=== PATIENT | female | born 1980 | race Caucasian/White ===

== ENCOUNTER 2016-08-14 07:40 | Emergency (ER) | payer BC ==
[2016-08-14 08:01] VITALS: RESP 18
--- NOTE | 2016-08-14 08:06 | UCPHY ---
H & P Time Seen by Provider: 08/14/16 07:49 Patient Type: Established HPI/ROS: 36-year-old female presents complaining of severe epigastric pain. She states she has had intermittent issues with it for a long time however it was markedly painful this morning. She states she has scheduled a in appointment with Gastroenterology at the end of the week. She has had some nausea and vomiting however is now tolerating water. She denies diarrhea she denies fevers or chills Review of systems As per HPI General no fever no chills no weakness HEENT no eye pain no eye discharge. No eye redness, no sore throat Respiratory no cough, no shortness of breath Cardiac no chest pain, no peripheral edema GI positive abdominal pain positive nausea positive vomiting no diarrhea no flank pain, no hematuria, no dysuria Musculoskeletal no myalgias, no joint pain Heme no easy bruising, no easy bleeding Endo no polyuria, no polydipsia Skin no rashes, no pruritus Neuro no syncope, no dizziness, no headaches Psych is no suicidal ideation, no homicidal ideation Past Medical/Surgical History: Hypothyroidism Depression/inside a Social History: Denies alcohol or drug use Smoking Status: Never smoked Physical Exam: 36-year-old female alert and oriented no acute distress nontoxic appearance afebrile HEENT atraumatic normocephalic, extraocular muscles intact, anicteric Oropharynx negative for erythema negative exudate, tolerating her own secretions Neck supple no meningismus Lungs clear to auscultation bilaterally Heart regular rate and rhythm without murmur rub or gallop Abdomen nondistended normoactive bowel sounds soft, mild epigastric tenderness, no guarding no rebound Back no CVA tenderness, no step-offs, no spinal tenderness Extremities no cyanosis clubbing or edema Neuro alert and oriented, no focal deficits Constitutional: Initial Vital Signs Heart Rate 69 08/14/16 07:56 Respiratory Rate 18 08/14/16 07:56 Blood Pressure 126/85 H 08/14/16 07:56 O2 Sat (%) 100 08/14/16 07:56 O2 Delivery Mode Room Air Allergies/Adverse Reactions: No Known Allergies Allergy (Verified 04/11/15 11:18) Home Medications: Medication Instructions Recorded Levothyroxine [Synthroid 100 mcg 175 mcg PO DAILY 08/28/12 (*)] Control Pill 04/11/15 Melatonin 08/14/16 Zoloft 50mg (*) 08/14/16 Medical Decision Making - Diagnostics Imaging: Ultrasound negative gallbladder findings, noted incidentally enlarged right kidney CT scan abdomen no evidence of obstructive uropathy however hydro nephrosis and ureter on the right ED Course/Re-evaluation: Patient seen and evaluated for severe epigastric pain. Labs sent CBC, CMP normal Urinalysis within normal limits Ultrasound negative for cholelithiasis or cholecystitis CT scan negative for obstructive uropathy Impression Epigastric pain, gastritis Incidental findings on this visit enlarged right kidney with hydronephrosis and hydroureter however no obstructive uropathy Plan Keep Gastroenterology appointment Arrange to make a primary care appointment Given urology referral for further evaluation of enlarged right kidney - Data Points Laboratory Results: Laboratory Results 08/14/16 08:10 08/14/16 08:10 Medications Given: Discontinued Medications Famotidine (Pepcid) 20 mg IVP EDNOW ONE Stop: 08/14/16 08:29 Last Admin: 08/14/16 08:44 Dose: 20 mg Sodium Chloride (Ns) 1,000 mls @ 0 mls/hr IV ONCE ONE PRN Reason: Wide Open Stop: 08/14/16 08:24 Last Admin: 08/14/16 08:40 Dose: 1,000 mls Departure - Departure Disposition: Home, Routine, Self-Care Clinical Impression: Epigastric abdominal pain, Hydronephrosis determined by ultrasound Condition: Good Instructions: Epigastric Pain (ED) Additional Instructions: Famotidine twice a day as needed Mylanta as needed Referrals: Juanita Lee MD [Primary Care Provider] - As per Instructions Keshawn Fink MD [Medical Doctor] - As per Instructions - PQRS PQRS Measurement: na
[2016-08-14 08:13] LABS: % IMMATURE GRANULYOCYTES 0.4 % (0.0-1.1); ABSOLUTE IMMATURE GRANULOCYTES 0.03 10^3/uL (0.00-0.10); ADD DIFF? NO; ADD MORPH? NO; ADD SCAN? NO; ATYPICAL LYMPHOCYTE FLAG 10 (0-99); FRAGMENT RBC FLAG 0 (0-99); HEMATOCRIT 38.9 % (38.0-47.0); HEMOGLOBIN 14.4 g/dL (12.6-16.3); LEFT SHIFT FLG 0 (0-99); LIPEMIA HEMOLYSIS FLAG 90 (0-99); MEAN CELL HEMOGLOBIN 32.2 pg (27.9-34.1); MEAN PLATELET VOLUME 9.8 fL (8.7-11.7); PLATELET CLUMPS FLAG 0 (0-99); PLATELET COUNT 204 10^3/uL (150-400); RED BLOOD CELL COUNT 4.47 10^6/uL (4.18-5.33); RED CELL DISTRIBUTION WIDTH 10.9 % (11.5-15.2)
[2016-08-14 08:15] LABS: COLOR YELLOW; LEUKOCYTE ESTERASE,URINE NEGATIVE (NEGATIVE); NITRITE,URINE NEGATIVE (NEGATIVE)
[2016-08-14] MEDS ORDERED: NS 1,000 ML IV ONE (08:23)
[2016-08-14 08:26] LABS: BACTERIA TRACE /hpf (NONE SEEN); HYALINE CASTS 25-50 /lpf (0-1); MUCUS 1+ /lpf (NONE-1+)
[2016-08-14] MEDS ORDERED: FAMOTIDINE 20 MG/2 ML SDV IVP ONE (08:28)
[2016-08-14 08:35] LABS: ALANINE AMINOTRANSFERASE 30 IU/L (9-52); ALBUMIN 3.8 g/dL (3.5-5.0); ALKALINE PHOSPHATASE 51 IU/L (38-126); ANION GAP 13 mEq/L (8-16); ASPARTATE AMINOTRANSFERASE 20 IU/L (14-46); BILIRUBIN,TOTAL 0.7 mg/dL (0.1-1.4); CARBON DIOXIDE 24 mEq/l (22-31); CHLORIDE 92 mEq/L (97-110); CREATININE 0.7 mg/dL (0.6-1.0); GLOMERULAR FILTRATION RATE > 60; GLUCOSE 103 mg/dL (70-100); POTASSIUM 3.6 mEq/L (3.5-5.2); SODIUM 129 mEq/L (134-144); TOTAL PROTEIN 6.8 g/dL (6.3-8.2)
[2016-08-14 10:51] VITALS: BP 120/80; PULSE 75; O2SAT 98
== END 2016-08-14 12:36 | disposition home or self-care (01) ==
LOC: CED 07:40
DX: R10.13 Epigastric pain (principal); N13.30 Unspecified hydronephrosis; E03.9 Hypothyroidism, unspecified
CPT/HCPCS: 74176-PO; 76705-PO; 80053-PO; 81003-PO; 81015-PO; 81025-PO; 83690-PO; 85025-PO; 96361-PO; 96374-PO; 99215-PO; G0463-PO

== ENCOUNTER → 2017-07-12 | Outpatient (CLI) | payer BC ==
[~2017-07-12] MED LIST: IOPAMIDOL (ISOVUE 370) 100 ML BTL IV ONE
== END ==
LOC: FIMAGING 12:27
PROVIDERS: ATTEND Obstetrics & Gynecology
DX: R93.8 Abnormal findings on diagnostic imaging of other specified body structures (principal)
CPT/HCPCS: Q9967

== ENCOUNTER → 2017-09-09 | Outpatient (CLI) | payer BC | LOC: FIMAGING 16:06 | PROVIDERS: ATTEND Specialist | DX: Z09 Encounter for follow-up examination after completed treatment for conditions other than malignant neoplasm (principal) ==

== ENCOUNTER → 2017-09-30 | Outpatient (CLI) | payer BC | LOC: FIMAGING 15:06 | PROVIDERS: ATTEND Obstetrics & Gynecology | DX: O99.281 Endocrine, nutritional and metabolic diseases complicating pregnancy, first trimester (principal); O34.219 Maternal care for unspecified type scar from previous cesarean delivery; O09.521 Supervision of elderly multigravida, first trimester; O99.341 Other mental disorders complicating pregnancy, first trimester; E03.9 Hypothyroidism, unspecified; F32.9 Major depressive disorder, single episode, unspecified; Z87.448 Personal history of other diseases of urinary system; Z3A.12 12 weeks gestation of pregnancy ==

== ENCOUNTER → 2017-11-25 | Outpatient (CLI) | payer BC | LOC: FIMAGING 07:35 | PROVIDERS: ATTEND Obstetrics & Gynecology | DX: O09.522 Supervision of elderly multigravida, second trimester (principal); O09.292 Supervision of pregnancy with other poor reproductive or obstetric history, second trimester; Z3A.20 20 weeks gestation of pregnancy ==

== ENCOUNTER → 2018-02-28 | Outpatient (CLI) | payer BC | LOC: CIMAGING 15:03 | PROVIDERS: ATTEND Specialist | DX: N13.30 Unspecified hydronephrosis (principal) | CPT/HCPCS: 76770-PO ==

== ENCOUNTER 2018-03-24 07:04 | Inpatient (IN) | payer BC ==
--- NOTE | 2018-03-20 13:22 | GHP ---
DATE OF ADMISSION: 04/03/2018 Date of operation is scheduled for 04/03/2018. PREOPERATIVE DIAGNOSIS: Intrauterine at 39 weeks gestation with a history of primary low transverse section secondary to breech, desires repeat. HISTORY OF PRESENT ILLNESS: Coral is a 38-year-old, 2, para 1-0-0-1, with a last menstrual period of 07/04/2017, and an EDC of 04/10/2018, confirmed by a first trimester ultrasound. She has had good care at [facility] since registration at 7 weeks gestation. Her risk factors include advanced maternal age. She has had a level 2 ultrasound that was normal and a normal NIPT screening. Hypothyroidism. She has been well controlled on levothyroxine, and her TSHs have been checked every trimester. She is on 150 mcg daily. History of depression and anxiety. She was started on Zoloft and has been well controlled throughout the on 50 mg a day. We have had long discussions about increasing her dose to 75 mg daily. She had a history of a LEEP. She has had normal cervical lengths in this . History of secondary to breech. Desires repeat. She herself was found to have an enlarged right kidney prior to that has been followed up with Urology and is normal now. She has a family history of cardiac defect, and this baby had a normal echo. PAST OBSTETRICAL HISTORY: In June 2014, she had a viable female, 6 pounds 11 ounces, by secondary to breech. She declined an external cephalic version and did well except for anxiety and depression. GYNECOLOGICAL HISTORY: She had normal menarche at age 16. She has cycles every 26-32 days and was 4-5 days. She had a history of an abnormal Pap and a LEEP in 2004. She has had normal Paps since. She also had an infertility evaluation and was found to have a blocked left fallopian tube, but this was a spontaneous . PAST MEDICAL HISTORY: She has mild asthma, rarely uses an inhaler. The hypothyroidism was diagnosed at age 26. She is well controlled on levothyroxine and depression and anxiety, is on Zoloft. 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 [place] teeth extraction in high school, ACL x2, and she had to have a patch on her tympanic membrane on her left ear as a child. ALLERGIES: She has no known drug allergies. MEDICATIONS: Include vitamins, DHA and fish oil, levothyroxine, and magnesium supplementation. SOCIAL HISTORY: She is . She lives with her , Twan, and her daughter. She works as a director at [employer]. She denies tobacco, alcohol, and drug use. FAMILY HISTORY: Maternal grandmother has diabetes. Her sister had lymphoma and a maternal aunt with breast cancer. Maternal grandfather lung cancer. Paternal grandfather with prostate cancer. Paternal grandmother with Alzheimer disease. REVIEW OF SYSTEMS: Negative except for pertinent positives as above in HPI and normal symptoms, ready for a . OBJECTIVE: VITAL SIGNS: Today, blood pressure is 98/56. Weight is 176 pounds , which is a 40-pound weight gain this . GENERAL: She is a well- developed, well-nourished gravid white female in no acute distress. LUNGS: Clear to auscultation bilaterally. HEART: Regular rate and rhythm. No murmur. Fundal height is 37. heart tones are 155. Cervical exam is closed and long. Baby is cephalic. ASSESSMENT AND PLAN: A 38-year-old 2, para 1-0-0-1, who will be 39 weeks gestation on the , scheduled for primary low transverse section. The patient was consented for the procedure today. She understood the risks and benefits. The risks including bleeding, infection, damage to internal organs, uterus, tubes, ovaries, bowel, bladder, nerves, blood vessels, ureters, risk of injury, risk of bleeding requiring blood transfusion, hysterectomy, or . She understood these risks and benefits and agreed to proceed. /[id number]/MODL MTDD
[2018-03-24] MEDS ORDERED: LR 1,000 ML IV SCH (07:19)
[2018-03-24] MEDS ORDERED: CITRIC ACID/SODIUM CITRATE 30 ML UDCUP PO ONE (07:19)
[2018-03-24] MEDS ORDERED: ceFAZolin 2 GM/DEXTROSE 100 ML IV ONE (07:19)
[2018-03-24] MEDS ORDERED: LR 500 ML IV ONE (07:19)
--- NOTE | 2018-03-24 07:22 | PDHPUP ---
History & Physical Update H&P update statement: This history and physical update is based on an assessment of the patient which was completed after admission or registration (within 24 hours), but prior to the surgery/procedure. H&P update: H&P reviewed & patient examined H&P changes: Coral presented this AM at 37w4d by ALAN of 04/10/18, called with SROM early this AM and now having regular painful ctx's. H/o primary section for breech, desires repeat. Aware of option of and no interest in that. Will proceed to OR this AM, routine orders.
[2018-03-24 07:32] LABS: PLATELET COUNT 155 10^3/uL (150-400)
[2018-03-24] MEDS ORDERED: OXYTOCIN/RINGERS LACTATE 20 UNIT/1,000 ML BAG IV ONE (07:43)
[2018-03-24] MEDS ORDERED: PHENYLEPHRINE HCL 100 MCG/ML SYR ONE (07:51)
[2018-03-24] MEDS ORDERED: ePHEDrine SULFATE 25 MG/5 ML SYR ONE (07:52)
--- NOTE | 2018-03-24 08:01 | PREANESOB ---
Obstetric Pre-Anesthesia Info - General Info NPO Start Time: 08:00 (sip of water at 6am, last solid 03/23 20:00) : 2 Para: 1 ALAN: 04/10/18 Gestational Age: 37 week(s) and 4 day(s) - Info Status: Premature, [place]rellana - Labor Status Rupture of Membranes Date: 03/24/18 Rupture of Membranes Time: 05:30 Amniotic Fluid Color: Clear PIH: No Magnesium Sulfate in Use: No Section History: Repeat Indications for Current Section: Elective/Repeat Labor Epidural: No Anesthesia Allergies/Adverse Reactions: Allergy/AdvReac Type Severity Reaction Status Date / Time No Known Allergies Allergy Verified 04/11/15 11:18 Home Medications: Medication Instructions Recorded Levothyroxine [Synthroid 100 mcg 175 mcg PO DAILY 08/28/12 (*)] Zoloft 50mg (*) 1 tab PO DAILY 08/14/16 1 tab PO DAILY 03/24/18 Visit Medications: Generic Name Dose Route Start Last Admin Trade Name Freq PRN Reason Stop Dose Admin Lactated Ringer's 1,000 mls @ 125 mls/hr 03/24/18 07:19 Lr IV 03/25/18 07:18 CONT JASVIR Discontinued Medications Generic Name Dose Route Start Last Admin Trade Name Freq PRN Reason Stop Dose Admin Citric Acid/Sodium Citrate 30 ml 03/24/18 07:19 03/24/18 07:29 Bicitra PO 03/24/18 07:20 30 ml ONCALL ONE Administration Ephedrine Sulfate Confirm 03/24/18 07:52 Ephedrine Sulfate Administered 03/24/18 07:53 Dose 25 mg .ROUTE .STK-MED ONE Cefazolin Sodium/Dextrose 100 mls @ 200 mls/hr 03/24/18 07:19 03/24/18 07:30 Ancef IV 03/24/18 07:48 100 mls ONCALL ONE Administration Protocol Lactated Ringer's 500 mls @ 0 mls/hr 03/24/18 07:19 03/24/18 07:29 Lr IV 03/24/18 07:20 500 mls ONCE ONE Administration As Directed Oxytocin/Lactated Ringer's Confirm 03/24/18 07:43 Pitocin 20 Units/Lr (Premix) Administered 03/24/18 07:44 Dose 20 unit IV .STK-MED ONE Phenylephrine HCl Confirm 03/24/18 07:51 Neosynephrine Administered 03/24/18 07:52 Dose 1,000 mcg .ROUTE .STK-MED ONE - Vital Signs Height/Weight (Nursing): Height 165.1 cm Weight 79.379 kg - Focused Exam Neck exam: FROM Mallampati Score: Class 2 Mouth exam: normal dental/mouth exam Pulmonary: no respiratory distress Cardiovascular: regular rate and rhythym Labs: 03/24/18 07:20 - Plan Anesthetic Plan: Plan for spinal and TAP block Consent Signed and on Chart: Yes Patient/Guardian Understands and Agrees to Plan: Yes
[2018-03-24] MEDS ORDERED: ROPIVACAINE HCL 150 MG/30 ML INJ ONE (08:56)
[2018-03-24] MEDS ORDERED: BUPIVACAINE/DEXTROSE 7.5MG/ML 2 ML SPINAL AMP SP ONE (08:57)
[2018-03-24] MEDS ORDERED: HYDROmorphONE/DILAUDID 1 MG/ML INJ IVP PRN ×2 (08:59→14:04)
[2018-03-24] MEDS ORDERED: PHENYLEPHRINE HCL 100 MCG/ML SYR IVP PRN ×2 (08:59→11:18)
[2018-03-24] MEDS ORDERED: NALOXONE HCL 0.4 MG/ML INJ IVP PRN ×2 (08:59→11:18)
[2018-03-24] MEDS ORDERED: METOCLOPRAMIDE 10 MG/2 ML VIAL IVP PRN ×2 (08:59→11:18)
[2018-03-24] MEDS ORDERED: ONDANSETRON 4 MG/2 ML VIAL IVP PRN ×2 (08:59→11:18)
[2018-03-24] MEDS ORDERED: HYDROCODONE/APAP 5/325 TAB PO PRN ×2 (08:59→11:18)
[2018-03-24] MEDS ORDERED: fentaNYL 100 MCG/2 ML INJ IVP PRN ×2 (08:59→11:18)
[2018-03-24] MEDS ORDERED: MEPERIDINE 25 MG/0.5 ML AMP IVP PRN ×2 (08:59→11:18)
[2018-03-24] MEDS ORDERED: PROMETHAZINE HCL 25 MG/ML INJ IVP PRN (09:16)
[2018-03-24] MEDS ORDERED: oxyCODONE IR 5 MG TAB PO PRN (09:16)
[2018-03-24] MEDS ORDERED: SIMETHICONE 80 MG TAB CHEW PO PRN (09:16)
--- NOTE | 2018-03-24 09:24 | SUROPNOTE ---
[facility] Operative Report - Surgery Date of Operation: 03/24/18 Surgeon: Yovany Gill Melter Operator: Raissa Jackson RN Anesthesia: Spinal (W bilat TAP blocks) Pre-op Diagnosis: SROM, early labor, h/o repeat Post-op Diagnosis: Same Procedure: RLTCS Findings: Minimal scar tissue, normal uterus, bilat tubes and ovaries Inf/Abcess present in the surg proc area at time of surgery?: No EBL: 700cc Total fluids administered: 1500cc Complications: None Specimen(s): Placenta not sent, cord blood gasses not sent.
--- NOTE | 2018-03-24 09:25 | OBDEL ---
Info Type: Repeat Presentation at Delivery: Vertex L&D Analgesia/Anesthesia Type: None (w bilat tap blocks), Spinal GBS+: No Intrapartum Medications: Discontinued Medications Generic Name Dose Route Start Last Admin Trade Name Sander PRN Reason Stop Dose Admin Citric Acid/Sodium Citrate 30 ml 03/24/18 07:19 03/24/18 07:29 Bicitra PO 03/24/18 07:20 30 ml ONCALL ONE Administration Cefazolin Sodium/Dextrose 100 mls @ 200 mls/hr 03/24/18 07:19 03/24/18 07:30 Ancef IV 03/24/18 07:48 100 mls ONCALL ONE Administration Protocol Lactated Ringer's 500 mls @ 0 mls/hr 03/24/18 07:19 03/24/18 07:29 Lr IV 03/24/18 07:20 500 mls ONCE ONE Administration As Directed Indications for Delivery: Spontaneous Labor, SROM Vaginal Delivery - Labor and Delivery Onset of Contractions Date: 03/24/18 Onset of Contractions Time: 06:00 Rupture of Membranes Date: 03/24/18 Rupture of Membranes Time: 05:30 Amniotic Fluid Color: Clear Operative Report - Delivery Pre-op Diagnoses: H/o PLTCS, desires repeat, SROM, early labor Post-op Diagnoses: Same History of Prior Section: Yes Number of Prior Sections: 1 Nulliparous Prior to Delivery: No Indications for Prior Section: Breech Indications for Current Section: Elective/Repeat Procedure: Unscheduled (37 wks PROM) Surgeon: Yovany Gill Framing Manager: Raissa Jackson Complications: None Findings: Minimal scar tissue, normal uterus, normal tubes and ovaries EBL: 700 [place] Data ALAN: 04/10/18 Gestational Age: 37 week(s) and 4 day(s) Orellana Delivery Date: 03/24/18 Delivery Time: 08:33 Sex of Infant: Female [place] Weight (gm): 3160 g Score (1 Min): 8 Score (5 Min): 8 ICD10 Worksheet Patient Problems: Problems Problem Status Onset Rupture, membranes, premature Acute Breech delivery Acute delivery delivered Acute - ICD10 Problem Qualifiers (1) Rupture, membranes, premature
[2018-03-24] MEDS: KETOROLAC 30 MG/1 ML SDV IVP SCH ×3 (10:02→22:06)
--- NOTE | 2018-03-24 10:03 | POSTANESTH ---
Post Anesthetic Evaluation Cardiovascular Status: Normal, Stable Respiratory Status: Normal, Stable Level of Consciousness/Mental Status: Can Participate in Eval Pain Control: Adequate, Prn Tx Ordered Nausea/Vomiting Control: Adequate, Prn Tx Ordered Complications Possibly Related to Anesthesia: None Noted
[2018-03-24] MEDS: IBUPROFEN 600 MG TAB PO SCH ×3 (10:04→23:30)
[2018-03-24] MEDS: ACETAMINOPHEN 325 MG TAB PO SCH ×3 (10:04→21:28)
[2018-03-24 10:41] LABS: PLATELET COUNT 148 10^3/uL (150-400)
[2018-03-24] MEDS: HYDROmorphONE/DILAUDID 1 MG/ML INJ IVP PRN ×3 (11:31→12:23)
[2018-03-24] MEDS: traMADol 50 MG TAB PO PRN ×2 (17:54→23:57)
[2018-03-24] MEDS: DOCUSATE SODIUM 100 MG CAP PO PRN (21:28)
[2018-03-24] MEDS: SERTRALINE HCL 50 MG TAB PO SCH (21:29)
[2018-03-25] MEDS: ACETAMINOPHEN 325 MG TAB PO SCH ×4 (03:44→23:00)
[2018-03-25] MEDS: KETOROLAC 30 MG/1 ML SDV IVP SCH (03:45)
[2018-03-25] MEDS: IBUPROFEN 600 MG TAB PO SCH ×4 (05:43→23:00)
[2018-03-25] MEDS: traMADol 50 MG TAB PO PRN ×3 (06:07→12:09)
[2018-03-25] MEDS: DOCUSATE SODIUM 100 MG CAP PO PRN ×2 (08:01→20:27)
[2018-03-25] MEDS ORDERED: LIDOCAINE 1% 300 MG/30 ML SDV ONE (09:47)
--- NOTE | 2018-03-25 11:10 | OBPP ---
Progress Note Assessment/Plan: Assessment: 38 POD#1 s/p R-C/S at 37w4d after SROM. Post op course complicated this morning by wound hematoma. Plan: wound opened and hematoma evacuated and packed with wet to dry saline Kerlex dressing. Will need to do this twice daily. No indication for abx. Will need to get home health involved to assist with bid dressing changes. Claire Dhillon MD, FACOG [facility] 03/25/18 10:53 Subjective/ Course: Doing well, ambulating, . Pain well controlled. Ulysses reg diet, no N/V. Had a couple gushes of blood this morning with moving around, thought was vaginal bleeding, but actually coming from left side of incision. 03/25/18 11:10 Objective: 03/25/18 03:55 03/24/18 10:27 Patient ABO/Rh B POSITIVE 03/24/18 07:20 Uric Acid 3.9 mg/dL (2.5-6.8) 03/24/18 10:27 Total Bilirubin 0.4 mg/dL (0.1-1.4) 03/24/18 10:27 Conjugated Bilirubin 0.1 mg/dL (0.0-0.5) 03/24/18 10:27 Unconjugated Bilirubin 0.3 mg/dL (0.0-1.1) 03/24/18 10:27 AST 25 IU/L (14-46) 03/24/18 10:27 ALT 21 IU/L (9-52) 03/24/18 10:27 Lactate Dehydrogenase 659 IU/L (313-618) H 03/24/18 10:27 Temp Pulse Resp BP Pulse Ox 36.6 C 67 16 113/78 96 03/25/18 03:58 03/25/18 03:58 03/25/18 03:58 03/25/18 03:58 03/25/18 03:58 Intake and Output 03/24/18 03/25/18 03/25/18 17:59 05:59 17:59 Intake Total 2850 1250 500 Output Total 2050 3100 450 Balance 800 -1850 50 Weight 79.379 kg Intake: Oral (ml) 1400 1250 500 IV Intake (ml) 1200 IV Infused (ml) 250 Lr 1,000 ml @ 125 mls/hr 250 IV CONT JASVIR Rx#: [id number] Output: Urine (ml) 1350 3100 450 Catheter 1350 3100 450 Estimated Blood Loss (ml) 700 Other: Intake Quantity Yes Sufficient Output Comment Catheter kothari catheter Per TANIA Hensley, had 1400ml urine out in about 3 hours this morning when she took out the Kothari catheter. Gen - pleasant, NAD abd - soft, fundus firm at u-3, diastasis noted above umbilicus, Inc - left side open 2cm and oozing blood actively. Entire incision has an underlying what appears to be a hematoma 15cm x 5cm. ext - trace edema, no calf tenderness Consulted with wound care nurse, who evaluated pt too and agreed that hematoma evacuation and wet to dry bid dressing changes is the best plan. Verbal consent obtained. Pt given IV dilaudid. Entire incision and surrounding skin prepped with betadine x 3. Sterile technique used. 10 ml of 1% lidocaine infiltrated over the length of the incision. Remainder of entire incision opened - suture removed. Fascia intact. Vast majority of SubQ was filled with clot which was evacuated. Moist gauze was used to clean and remove all clot. Silver nitrate sticks used to obtain hemostasis of active bleeder on left side of incision and some oozing throughout the incision. Wound was then packed with saline moistened Kerlix gauze, with care taken to fill the space deep on the left side of the incision - approximately 8cm caudal beneath the incision. ABD pad and Medipore tape to cover entire wound. Pt tolerated procedure well. Uterine Position/Fundal Height: Umbilicus -2 Uterine Tone: Firm
[2018-03-25] MEDS: LEVOTHYROXINE 175 MCG TAB PO SCH (11:18)
[2018-03-25] MEDS: SERTRALINE HCL 50 MG TAB PO SCH (12:09)
--- NOTE | 2018-03-25 13:51 | ASMTCMCOM ---
CM Note CM Note Notes: Request from nursing that Dr. Dhillon wants [facility] services for patient's wound care. Patient is s/p with hematoma and evacuation of hematoma. Per Dr. Dhillon wound care consulted and recommendation is for BID wet to dry dressing changes. Contacted [facility] as patient [place] which can be challenging to acquire [facility] for. I will call [facility] back regarding the possibility of doing BID while teaching patient or other provider to assist with one of the daily dressing changes. CM to follow. Plan: Likely to dc home with [facility]. Date Signed: 03/25/2018 01:50 PM Electronically Signed By:Anita Carreon RN
--- NOTE | 2018-03-25 14:44 | PDPAINCON ---
Pain Management Consultation - Subjective Pain is: under control Side effects include: No drowsy, No itchiness, No nausea Activity: able to ambulate - Objective Technique: single shot nerve block (Spinal/TAPs) Catheter site: clean, dry, intact, no erythema/edema/exudate Sensory and motor exam: block has resolved, no apparent ill effects Vital signs: stable - Assessment/Plan Assessment/Plan: pain well-controlled, continue current mgmt
--- NOTE | 2018-03-25 16:22 | ASMTCMCOM ---
CM Note CM Note Notes: Spoke with [facility] regarding patient needs for BID dressing changes and they are willing to provide this for interim, Patient reports her is unable to participate in wound care and she has no other support system available to learn how to perform dressings. CM to follow for needs. Plan: Home with [facility] Date Signed: 03/25/2018 04:22 PM Electronically Signed By:Anita Carreon RN
[2018-03-25] MEDS: HYDROmorphONE/DILAUDID 2 MG TAB PO PRN (20:27)
[2018-03-26] MEDS: HYDROmorphONE/DILAUDID 2 MG TAB PO PRN ×5 (00:27→19:56)
[2018-03-26] MEDS: ACETAMINOPHEN 325 MG TAB PO SCH ×3 (05:23→19:55)
[2018-03-26] MEDS: IBUPROFEN 600 MG TAB PO SCH ×3 (05:24→19:56)
[2018-03-26] MEDS: SERTRALINE HCL 50 MG TAB PO SCH (06:25)
[2018-03-26] MEDS: LEVOTHYROXINE 175 MCG TAB PO SCH (06:25)
--- NOTE | 2018-03-26 08:48 | OBPP ---
Progress Note Assessment/Plan: Assessment: 1) s/p RCS POD # 2 - pt is stable 2) Post-op wound hematoma with evacuation 3) Anemia - pt is asymptomatic Plan: Continue routine post-op care Dr. Shellie Escobar to come see pt for wound care this am Will start iron BID Cont bowel protocol Pt may take her own magnesium support prn 03/26/18 09:29 Subjective/ Course: Doing well, ambulating, . Pain well controlled. Shannan reg diet, no N/V. Had a couple gushes of blood this morning with moving around, thought was vaginal bleeding, but actually coming from left side of incision. 03/25/18 11:10 03/26/18 08:48 Pt seen and examined. She is up ambulating to get water this am. Pain is better controlled with oral Dilaudid, but notes may be constipating. Pt would like to take her own magnesium to help with BM. Mild lochia. Pt is shannan regular diet, voiding without difficulty and passed flatus yesterday. BF is going well. Pt also notes lower ext edema and muscle cramps in LLE-which is not new for her. 03/26/18 09:29 Objective: 03/25/18 03:55 03/24/18 10:27 Patient ABO/Rh B POSITIVE 03/24/18 07:20 Uric Acid 3.9 mg/dL (2.5-6.8) 03/24/18 10:27 Total Bilirubin 0.4 mg/dL (0.1-1.4) 03/24/18 10:27 Conjugated Bilirubin 0.1 mg/dL (0.0-0.5) 03/24/18 10:27 Unconjugated Bilirubin 0.3 mg/dL (0.0-1.1) 03/24/18 10:27 AST 25 IU/L (14-46) 03/24/18 10:27 ALT 21 IU/L (9-52) 03/24/18 10:27 Lactate Dehydrogenase 659 IU/L (313-618) H 03/24/18 10:27 Temp Pulse Resp BP Pulse Ox 36.6 C 82 16 130/71 H 94 03/26/18 00:42 03/26/18 00:42 03/26/18 00:42 03/26/18 00:42 03/25/18 20:00 Uterine Position/Fundal Height: Umbilicus -1 Uterine Tone: Firm Physical Exam - Physical Exam General Appearance: alert, no apparent distress, mild distress Respiratory: lungs clear, normal breath sounds Cardiac/Chest: regular rate, rhythm Abdomen: normal bowel sounds, soft, flatus (+), incision (wound packed and dressing in place with minimal drainage), other (appropriate tenderness) Extremities: non-tender, normal inspection, swelling, Alec's sign (negative) Skin: normal color, warm/dry Neuro/Psych: alert, normal mood/affect, oriented x 3
[2018-03-26] MEDS: DOCUSATE SODIUM 100 MG CAP PO PRN (09:31)
[2018-03-26] MEDS: FERROUS SULFATE 140 MG TAB.ER PO SCH (09:32)
--- NOTE | 2018-03-26 10:57 | SOAPPROG ---
SOAP Progress Note Assessment/Plan: Assessment/Plan: 38yo F POD#2 s/p Hematoma evacuated by OBGYN yesterday Wound vac placed today -will be changed 2x/week Home care will be set up for dressing changes (tuesdays and fridays) Will fu Saturday at our office for first dressing change Full consult note dictated Seen with Dr. Gutierrez. Objective: Vital Signs Temp Pulse Resp BP Pulse Ox 36.6 C 82 16 130/71 H 94 03/26/18 00:42 03/26/18 00:42 03/26/18 00:42 03/26/18 00:42 03/25/18 20:00 Laboratory Results 03/25/18 03:55 03/24/18 10:27 03/25/18 03/26/18 03/27/18 05:59 05:59 05:59 Intake Total 4100 500 Output Total 5150 3100 Balance -1050 -2600 ICD10 Worksheet Patient Problems: Problems Problem Status Onset Rupture, membranes, premature Acute Breech delivery Acute delivery delivered Acute
--- NOTE | 2018-03-26 11:57 | GCON ---
DATE OF CONSULTATION: 03/26/2018 REFERRING PHYSICIAN: Shalonda Waldrop DO REASON FOR CONSULTATION: Retained hematoma, status post section. HISTORY OF PRESENT ILLNESS: 38-year-old woman who underwent section for her 2nd delivery on 03/24/2018. On postoperative day #1 she developed increased swelling and drainage from her surgical incision. She underwent incision and drainage with evacuation of retained hematoma on 03/25/2018, yoav Dhillon and a damp to dry dressing was placed. She does not have any surrounding erythema, fevers , or chills. She does have pain at the surgical site. She is not currently on any antibiotics. PAST MEDICAL HISTORY: Hypothyroidism, asthma, history of depression and anxiety. PAST SURGICAL HISTORY: section in 2014 and 03/24/2018, benign neck tumor parotid gland no jose elias 2000, wisdom teeth extraction, ACL x2. ALLERGIES: No known drug allergies. SOCIAL HISTORY: She is . She lives with her , Twan and has now 2 daughters. 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 FAMILY HISTORY: Maternal grandmother with diabetes. Sister with lymphoma. Maternal aunt with breas t cancer. Maternal grandfather, lung cancer. Paternal grandfather, prostate cancer. Paternal grand mother with Alzheimer disease. REVIEW OF SYSTEMS: 10-point review of systems negative aside from HPI. PHYSICAL EXAMINATION: GENERAL: Well-developed, well-nourished woman in no acute distress. HEENT: Normocephalic, atraumatic. No hearing deficits. Pupils equal and round. No scleral icterus. Mucou s membranes moist. NECK: Trachea midline. RESPIRATORY: No increased work of breathing. CARDIOVAS CULAR: Trace peripheral edema bilaterally. ABDOMEN: uterus, Pfannenstiel incis ion wound measures 18 x 1 x 2.5 cm. There is healthy granulation tissue in the base of the wound. N o debridement was performed. There was no active bleeding. No evidence of retained hematoma. Wound VAC dressing was placed with suction at -125 mmHg. She has some ecchymosis inferior to her incision . No erythema. PSYCH: Mood and affect normal. NEURO: Grossly intact. IMPRESSION AND PLAN: 38-year-old woman who is status post evacuation of a hematoma of her i ncision on postoperative day #2. We have recommended negative pressure wound therapy likely for 2 we eks. She will have the dressing changed twice weekly. Home Care will be set up. She will come to o ur office on 03/28/2018, for dressing change. She does not require antibiotics at this time. She will monitor for surrounding erythema or other worsening symptoms. She will call our office wi th any worsening symptoms, questions or concerns. Plan is for discharge tomorrow with home wound VAC . Do not get the dressing wet in the shower. All other activity restrictions per [employer]. /[id number]/MODL
--- NOTE | 2018-03-26 13:53 | ASMTCMCOM ---
CM Note CM Note Notes: Spoke with surgical PA re patient wound needing vac. Orders obtained and faxed to [facility] . Notified [facility] that wound care orders will change. Awaiting authorization form [facility]. CM available should other needs arise. Plan: Home with would vac and HHC. Date Signed: 03/26/2018 01:52 PM Electronically Signed By:Anita Carreon RN
[2018-03-26] MEDS ORDERED: LACTULOSE 20 GM/30 ML UDCUP PO PRN (16:58)
[2018-03-26] MEDS ORDERED: BISACODYL 10 MG SUPP PR PRN (16:58)
[2018-03-26] MEDS ORDERED: POLYETHYLENE GLYCOL 3350 17 GM PKT PO PRN (16:58)
[2018-03-26] MEDS ORDERED: MAGNESIUM HYDROXIDE 30 ML UDCUP PO PRN (16:58)
[2018-03-26] MEDS: SENNOSIDES/DOCUSATE SODIUM TAB PO SCH (19:55)
[2018-03-27] MEDS: HYDROmorphONE/DILAUDID 2 MG TAB PO PRN ×3 (00:09→08:42)
[2018-03-27] MEDS: ACETAMINOPHEN 325 MG TAB PO SCH ×2 (02:16→08:41)
[2018-03-27] MEDS: IBUPROFEN 600 MG TAB PO SCH ×2 (02:16→08:42)
[2018-03-27] MEDS: DOCUSATE SODIUM 100 MG CAP PO PRN (08:40)
[2018-03-27] MEDS: FERROUS SULFATE 140 MG TAB.ER PO SCH (08:40)
[2018-03-27 11:15] VITALS: BP 122/80
--- NOTE | 2018-03-27 11:22 | OBPP ---
Progress Note Assessment/Plan: Assessment: POD 3 s/p RCS after SROM post op hematoma now with wound vac Plan: Ready for d/c, RTC with wound care 03/27/18 11:13 Subjective/ Course: Doing well, ambulating, . Pain well controlled. Shannan reg diet, no N/V. Had a couple gushes of blood this morning with moving around, thought was vaginal bleeding, but actually coming from left side of incision. 03/25/18 11:10 03/26/18 08:48 Pt seen and examined. She is up ambulating to get water this am. Pain is better controlled with oral Dilaudid, but notes may be constipating. Pt would like to take her own magnesium to help with BM. Mild lochia. Pt is shannan regular diet, voiding without difficulty and passed flatus yesterday. BF is going well. Pt also notes lower ext edema and muscle cramps in LLE-which is not new for her. 03/26/18 09:29 03/27/18 11:22 Pt doing well. Using duramorph couple a day. 03/27/18 11:24 note continued -- also regular ibu/tyl. urinating fine. bld is light. much happier with wound vac than with drsg changes. ready for d/c. baby is latching great. Objective: 03/25/18 03:55 03/24/18 10:27 Patient ABO/Rh B POSITIVE 03/24/18 07:20 Uric Acid 3.9 mg/dL (2.5-6.8) 03/24/18 10:27 Total Bilirubin 0.4 mg/dL (0.1-1.4) 03/24/18 10:27 Conjugated Bilirubin 0.1 mg/dL (0.0-0.5) 03/24/18 10:27 Unconjugated Bilirubin 0.3 mg/dL (0.0-1.1) 03/24/18 10:27 AST 25 IU/L (14-46) 03/24/18 10:27 ALT 21 IU/L (9-52) 03/24/18 10:27 Lactate Dehydrogenase 659 IU/L (313-618) H 03/24/18 10:27 Temp Pulse Resp BP Pulse Ox 36.3 C 68 16 132/88 H 97 03/27/18 02:28 03/27/18 02:28 03/27/18 02:28 03/27/18 02:28 03/27/18 02:28 Uterine Position/Fundal Height: Umbilicus -1 Uterine Tone: Firm Physical Exam - Physical Exam Abdomen: non-tender (approp post op tenderness), soft, incision (covered with wound vac drsg) Extremities: non-tender, pedal edema (mild) Skin: normal color, warm/dry Neuro/Psych: alert, normal mood/affect
--- NOTE | 2018-03-27 11:35 | OBGCSDC ---
General Delivery Information - General Info : 2 Para: 2 Abortions: 0 Type: Repeat L&D Analgesia/Anesthesia Type: None (w bilat tap blocks), Spinal Admission Date: 03/24/18 Labs: Patient ABO/Rh B POSITIVE 03/24/18 07:20 Hct 35.4 % (38.0-47.0) L 03/25/18 03:55 - Hospital Course : Doing well, ambulating, . Pain well controlled. Ulysses reg diet, no N/V. Had a couple gushes of blood this morning with moving around, thought was vaginal bleeding, but actually coming from left side of incision. 03/25/18 11:10 03/26/18 08:48 Pt seen and examined. She is up ambulating to get water this am. Pain is better controlled with oral Dilaudid, but notes may be constipating. Pt would like to take her own magnesium to help with BM. Mild lochia. Pt is ulysses regular diet, voiding without difficulty and passed flatus yesterday. BF is going well. Pt also notes lower ext edema and muscle cramps in LLE-which is not new for her. 03/26/18 09:29 03/27/18 11:22 Pt doing well. Using duramorph couple a day. 03/27/18 11:24 note continued -- also regular ibu/tyl. urinating fine. bld is light. much happier with wound vac than with drsg changes. ready for d/c. baby is latching great. Vaginal - Diagnosis Amniotic Fluid Color: Clear - Delivery Providers Surgeon: Yovany Gill [employer] Process Control Technician: Raissa Jackson - Delivery Number of Prior Sections: 1 Indications for Current Section: Elective/Repeat Surgical Procedures: Unscheduled (37 wks PROM) Intra-op Complications: None EBL: [address] [place] Data ALAN: 04/10/18 Gestational Age: 38 week(s) and 0 day(s) O[place]ana Delivery Date: 03/24/18 Delivery Time: 08:33 Sex of : Female [place] Weight (gm): 3160 g Score (1 Min): 8 Score (5 Min): 8 Discharge Information - Discharge Information Prescriptions: HYDROmorphone HCL [Dilaudid 2 mg (*)] 2 - 4 mg PO Q4HRS PRN #20 tab PRN Reason: Pain, Severe Able To Take Po Condition: Good Instruction/Follow Up: See Instruction Sheet, Two Weeks (with YAQUELIN), Four Weeks ( with therapist), Six Weeks (with YAQUELIN)
[2018-03-27] MEDS: LEVOTHYROXINE 175 MCG TAB PO SCH (12:06)
[2018-03-27] MEDS: SENNOSIDES/DOCUSATE SODIUM TAB PO SCH (12:06)
[2018-03-27] MEDS: SERTRALINE HCL 50 MG TAB PO SCH (12:07)
--- NOTE | 2018-03-27 14:58 | ASDISCHSUM ---
Discharge Information Plan Status:Home with No Needs Medically Cleared to Leave:03/27/2018 Discharge Date:03/27/2018 12:30 PM CM D/C Disposition:Home, Routine, Self-Care ADT D/C Disposition:Home, Routine, Self-Care Projected Discharge Date:03/27/2018 11:00 AM Transportation at D/C:Family Discharge Delay Reason: Follow-Up Date:03/27/2018 11:00 AM Discharge Slot: Final Diagnosis:cesarian section Placement Information Referral Type:*Home Health Care Services Referral ID:[id number] Provider Name: Address 1: Phone Number: Address 2: Fax Number: City: Selection Factors: State: Patient Contact Information Contact Name:DOMENIC Relationship: Address:[address] [facility] Work Phone: City:[facility] Phone: [facility] Code:[place] [address] Email: Financial Information Financial Class:BCOP Primary Plan Desc:BC OUT OF STATE PPO Primary Plan Number:[id number] Secondary Plan Desc: Secondary Plan Number: Assessment Information [facility] CM Progress Note CM Note CM Note Notes: Request from nursing that Dr. Dhillon wants [facility] services for patient's wound care. Patient is s/p with hematoma and evacuation of hematoma. Per Dr. Dhillon wound care consulted and recommendation is for BID wet to dry dressing changes. Contacted [facility] as patient has BC out of State which can be challenging to acquire [facility] for. I will call [facility] back regarding the possibility of doing BID while teaching patient or other provider to assist with one of the daily dressing changes. CM to follow. Plan: Likely to dc home with [facility]. Date Signed: 03/25/2018 01:50 PM Electronically Signed By:Anita Carreon RN [facility] CM Progress Note CM Note CM Note Notes: Spoke with [facility] regarding patient needs for BID dressing changes and they are willing to provide this for interim, Patient reports her is unable to participate in wound care and she has no other support system available to learn how to perform dressings. CM to follow for needs. Plan: Home with [facility] Date Signed: 03/25/2018 04:22 PM Electronically Signed By:Anita Carreon RN [facility] CM Progress Note CM Note CM Note Notes: Spoke with surgical PA re patient wound needing vac. Orders obtained and faxed to [facility] . Notified [facility] that wound care orders will change. Awaiting authorization form [facility]. CM available should other needs arise. Plan: Home with would vac and [facility]. Date Signed: 03/26/2018 01:52 PM Electronically Signed By:Anita Carreon RN Case Management Discharge Plan Note Case Management Discharge Discharge Order Complete? Answers: Yes Patient to Obtain Answers: via Family Medications Transportation Arranged Answers: Family/Friends Family Notified Answers: Yes Discharge Comments Notes: Pt decided to discharge home with wound vac and follow up for wound care with the wound clinic, per pt's RN. No further CM needs noted at this time. Date Signed: 03/27/2018 02:58 PM Electronically Signed By:Claudia Lewis Intervention Information
== END 2018-03-27 12:30 | disposition home or self-care (01) | DRG 788 ==
LOC: OBSVTOIN 07:04 → FLD 07:04 → FOB 12:31
PROVIDERS: ADMIT Obstetrics & Gynecology; ATTEND Obstetrics & Gynecology
PROC: 10D00Z1 Extraction of Products of Conception, Low, Open Approach (ICD-10-PCS; principal; 2018-03-24)
PROC: 0W3F0ZZ Control Bleeding in Abdominal Wall, Open Approach (ICD-10-PCS; 2018-03-25)
PROC: 0JCC0ZZ Extirpation of Matter from Pelvic Region Subcutaneous Tissue and Fascia, Open Approach (ICD-10-PCS; 2018-03-25)
DX: O34.211 Maternal care for low transverse scar from previous cesarean delivery (principal); O42.02 Full-term premature rupture of membranes, onset of labor within 24 hours of rupture; O90.2 Hematoma of obstetric wound; O99.284 Endocrine, nutritional and metabolic diseases complicating childbirth; E03.9 Hypothyroidism, unspecified; O99.344 Other mental disorders complicating childbirth; F32.9 Major depressive disorder, single episode, unspecified; O99.03 Anemia complicating the puerperium; Z3A.37 37 weeks gestation of pregnancy; Z37.0 Single live birth
CPT/HCPCS: J0690; J1170; J1885; J2370; J2590; J2795